=== PATIENT | female | born 1965 | race Caucasian/White ===

== ENCOUNTER 2019-08-13 01:02 | Day surgery (SDC) | payer BC, OTHER, SELFPAY ==
[2019-08-09 15:07] VITALS: BMI 24.7
[2019-08-13 10:36] VITALS: BP 105/61; PULSE 91; RESP 20; TEMP 36.2; O2SAT 100; BMI 24.7
[2019-08-13] MEDS: LACTATED RINGERS 1,000 ML 150 ML IV CONT (10:40)
--- NOTE | 2019-08-13 10:53 | PM.HPGS ---
History of Present Illness History of Present Illness Consent: Risks, benefits, and alternatives have been discussed and questions answered. Patient agrees to proceed with procedure. Chief complaint: Epigastric Pain/ Neoplasm Screening Narrative: Genevieve Temple is a 54 year old female Here for screening colonoscopy in for investigation of vomiting spells that characterized by dry heaves. For about 9 months she will notice while she was eating or while swallowing that she will develop severe contraction in her entire abdomen resulting in dry heaves. even though this occurs while eating, no food comes up. She had a gastric sleeve procedure 8 years ago. Her weight had dropped to 160 but slowly she regained about 50 lb. Now, for the past several months she is losing weight having lost about 20 lb with these episodes. She will get a burning in her chest after dry heaves, but again nothing comes up. There has been no change in bowel habits PMFSH Past Medical History Medical History HTN (hypertension), benign Hypercholesteremia Hypothyroidism Surgical History Surgical History Bariatric surgery status h/o gastric sleeve 2011 History of cholecystectomy History of cystoscopy from rib. History of tonsillectomy Hx of eye surgery rt muscle. Family History Family History Grandparent Family history of malignant neoplasm Family history of osteoporosis Family history of alcoholism Family history of Alzheimer's disease Diabetes mellitus Mother Family history of osteoporosis Patient's mother is in good health Sibling Family history of osteoporosis Patient's sister is in good health Family history of allergic disorder Family history of malignant melanoma Father Patient's father is in good health Malignant neoplasm of prostate Hypertension Family history of diabetes mellitus in first degree relative Family history of coronary artery disease Other Family history of attention deficit hyperactivity disorder (ADHD) Social History Social History Smoking packs per day: 1 Smoking cigarettes per day: 20.0 Years smoked: 7 Smoking pack-years: 7.00 Smoking status: Former smoker Tobacco type: cigarettes Second hand tobacco smoke exposure: No Smoking end date: 06/26/93 Alcohol intake: never Substance use: never Substance use type: does not use Gender identity (if verbalized by the patient): Female Meds Home Medications and Allergies Home Medications Medication Instructions Recorded Confirmed Type meloxicam 15 mg tablet 15 mg PO DAILY 05/10/19 08/13/19 History lisinopril 10 mg tablet 10 mg PO DAILY #90 tablet 06/03/19 08/13/19 Rx levothyroxine 112 mcg tablet 112 mcg PO DAILY #90 tablet 06/26/19 08/13/19 Rx lorazepam 0.5 mg tablet 0.5 mg PO TID PRN #30 tablet 07/15/19 08/13/19 Rx hydrochlorothiazide 25 mg tablet 25 mg PO DAILY #90 tablet 07/22/19 08/13/19 Rx rosuvastatin 10 mg tablet 10 mg PO DAILY #90 tablet 07/22/19 08/13/19 Rx cyanocobalamin (vitamin B-12) 500 500 mcg NASAL WEEKLY #12 each 08/02/19 08/13/19 Rx mcg/spray nasal spray Allergies Allergy/AdvReac Type Severity Reaction Status Date / Time Iodine and Iodide Containing Allergy Severe Difficulty Verified 08/13/19 10:42 Produc Breathing Vital Signs Vital Signs - 24 hr 08/13/19 10:36 Temperature 36.2 C L Pulse Rate 91 Respiratory Rate 20 Blood Pressure 105/61 Pulse Oximetry 100 Exam Const: General: alert Orientation/consciousness: patient oriented x3 Resp: Auscultation: clear to auscultation bilaterally Cardio: Rhythm: regular rhythm GI: GI Palp: Yes Soft to palpation and No Tenderness to palpation present (GI) Neuro: General: patient oriented x3 Assessment and Plan Asses
--- NOTE | 2019-08-13 11:25 | WPDANESEPPF ---
Anes - Initial Pre Proc Eval Procedure: Operation Date: 08/13/19 11:00 Proposed Procedures p Esophagogastroduodenoscopy & Screening Colonoscopy - [place] MD Date/Time: 08/13/19 11:25 Surgeon: [place] MD Pre Op Diagnosis: Epigastric Pain/ Neoplasm Screening Patient Data Age: 54 Gender: F Height: 5 ft 7 in Weight: 71.7 kg Last Vital Signs Temp 97.2 F L 08/13/19 10:36 Pulse 91 08/13/19 10:36 Resp 20 08/13/19 10:36 BP 105/61 08/13/19 10:36 Pulse Ox 100 08/13/19 10:36 Allergies Allergy/AdvReac Type Severity Reaction Status Date / Time Iodine and Iodide Containing Allergy Severe Difficulty Verified 08/13/19 10:42 Produc Breathing Home Medications Medication Instructions Recorded Confirmed Type meloxicam 15 mg tablet 15 mg PO DAILY 05/10/19 08/13/19 History lisinopril 10 mg tablet 10 mg PO DAILY #90 tablet 06/03/19 08/13/19 Rx levothyroxine 112 mcg tablet 112 mcg PO DAILY #90 tablet 06/26/19 08/13/19 Rx lorazepam 0.5 mg tablet 0.5 mg PO TID PRN #30 tablet 07/15/19 08/13/19 Rx hydrochlorothiazide 25 mg tablet 25 mg PO DAILY #90 tablet 07/22/19 08/13/19 Rx rosuvastatin 10 mg tablet 10 mg PO DAILY #90 tablet 07/22/19 08/13/19 Rx cyanocobalamin (vitamin B-12) 500 500 mcg NASAL WEEKLY #12 each 08/02/19 08/13/19 Rx mcg/spray nasal spray Patient hx anesthesia problems: none Family hx anesthesia problems: none PMFSH Past Medical History Medical History HTN (hypertension), benign Hypercholesteremia Hypothyroidism Surgical History Surgical History Bariatric surgery status h/o gastric sleeve 2011 History of cholecystectomy History of cystoscopy from rib. History of tonsillectomy Hx of eye surgery rt muscle. Family History Family History Grandparent Family history of malignant neoplasm Family history of osteoporosis Family history of alcoholism Family history of Alzheimer's disease Diabetes mellitus Mother Family history of osteoporosis Patient's mother is in good health Sibling Family history of osteoporosis Patient's sister is in good health Family history of allergic disorder Family history of malignant melanoma Father Patient's father is in good health Malignant neoplasm of prostate Hypertension Family history of diabetes mellitus in first degree relative Family history of coronary artery disease Other Family history of attention deficit hyperactivity disorder (ADHD) Social History Social History Smoking packs per day: 1 Smoking cigarettes per day: 20.0 Years smoked: 7 Smoking pack-years: 7.00 Smoking status: Former smoker Tobacco type: cigarettes Second hand tobacco smoke exposure: No Smoking end date: 06/26/93 Alcohol intake: never Substance use: never Substance use type: does not use Gender identity (if verbalized by the patient): Female Anes - Eval Final PreProcedure Day of Procedure 08/13/19 11:25 Patient weight: normal Heart: regular rate and rhythm Lungs: clear to auscultation Airway: Mallampati scale class II Neurological: alert and oriented Last oral intake: >/= 8 hours ASA classification: III Emergent: no Anesthetic plan: proceed Anesthesia type and monitoring: general GIVS and standard monitoring Informed Consent: The patient's anesthetic plan and its attendant risks and benefits were discussed with the patient/family/POA. Questions were solicited and answers provided to the satisfaction of the patient/family/POA.
[2019-08-13 11:57] VITALS: BP 89/58; PULSE 70; RESP 16; O2SAT 99
[2019-08-13 12:07] VITALS: BP 94/62; PULSE 56; RESP 16; O2SAT 100
[2019-08-13 12:17] VITALS: BP 99/79; PULSE 58; RESP 16; O2SAT 100
[2019-08-13 12:27] VITALS: BP 102/67; PULSE 60; RESP 16; O2SAT 100
== END 2019-08-13 12:59 | disposition home or self-care (01) ==
PROVIDERS: PCP Family Medicine; Visit Provider Internal Medicine Gastroenterology
PROC: 0DJ08ZZ Inspection of Upper Intestinal Tract, Via Natural or Artificial Opening Endoscopic (ICD-10-PCS; CPT 43235; principal; 2019-08-13 11:00)
DX: Z12.11 Encounter for screening for malignant neoplasm of colon (principal); K21.9 Gastro-esophageal reflux disease without esophagitis; K29.70 Gastritis, unspecified, without bleeding; Z98.84 Bariatric surgery status; I10 Essential (primary) hypertension; E78.00 Pure hypercholesterolemia, unspecified; E03.9 Hypothyroidism, unspecified; Z87.891 Personal history of nicotine dependence
CPT/HCPCS: 45378; 43239; 87081; 88305; J2704; J7120

== ENCOUNTER → 2019-08-20 16:19 | Outpatient (CLI) | payer BC, OTHER, SELFPAY ==
--- NOTE | ~2019-08-20 | MM_ITS ---
EXAMINATION: MM screening brenna BI w zina HISTORY: Screening mammogram TECHNIQUE: Craniocaudal and mediolateral oblique 3-D tomosynthesis images were obtained and synthetic 2-D images were generated. CAD analysis was submitted and interpreted. COMPARISON: No prior mammogram is available for comparison at this institution. BREAST PARENCHYMAL COMPOSITION: There are scattered areas of fibroglandular density. FINDINGS: There is no evidence of suspicious mass, calcification, or architectural distortion to sugg est malignancy in either breast. There has been no suspicious interval change. IMPRESSION: 1. No mammographic evidence of malignancy. 2. Recommend routine screening mammography in one year. BI-RADS Category 1: Negative Reviewed, dictated and finalized at location A. [employer]
== END ==
PROVIDERS: PCP Family Medicine; Visit Provider Family Medicine
DX: Z12.31 Encounter for screening mammogram for malignant neoplasm of breast (principal)
CPT/HCPCS: 77063; 77067

== ENCOUNTER 2019-08-30 07:35 | Outpatient (CLI) | payer BC, OTHER, SELFPAY ==
--- NOTE | ~2019-08-30 | XR_ITS ---
EXAMINATION: XR UGIAC w small bowel DATE: 08/30/2019 09:15 INDICATION: Enteritis. Dry heaves when eating. TECHNIQUE: The patient drank thick barium, gas-producing crystals, and thin barium. Fluoroscopy of th e esophagus, stomach, and small bowel was performed. Fluoroscopy exposure time was 1.0 minutes. Radio graphs of the abdomen were obtained. The total number of images was 292. COMPARISON: Chest CT 06/08/2012 FINDINGS: UPPER GASTROINTESTINAL SERIES: There is no mass or stricture of the esophagus. 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 Esophageal motil ity is normal. There is no hiatal hernia. There was no gastroesophageal reflux with provocative maneu vers. The stomach shows a normal folding pattern. Surgical clips in the right upper quadrant are like ly from cholecystectomy. SMALL BOWEL SERIES: The small bowel shows a normal folding pattern. Specifically, the terminal ileum is normal. Transit t kam to the colon was 15 minutes. IMPRESSION: 1. Epiphrenic diverticulum of the distal esophagus. 2. Normal small bowel series. Reviewed, dictated and finalized at location A. [employer]
== END 2019-08-30 07:36 | disposition home or self-care (01) ==
LOC: ANHIMG 07:46
PROVIDERS: PCP Family Medicine; Visit Provider Internal Medicine Gastroenterology
DX: K52.9 Noninfective gastroenteritis and colitis, unspecified (principal); K22.5 Diverticulum of esophagus, acquired
CPT/HCPCS: 74246; 74248

== ENCOUNTER 2020-10-27 13:09 | Emergency (ER) | payer BC, OTHER, SELFPAY ==
[2020-10-27 13:28] VITALS: BP 115/66; PULSE 88; RESP 16; TEMP 36.2; O2SAT 99
--- NOTE | 2020-10-27 14:09 | ED.SKABFB ---
HPI - Skin/Abscess/Foreign Bdy General Chief complaint: Skin/Abscess/Foreign Body <Sparkle Arnett MD - Last Filed: 10/27/20 21:28> Stated complaint: tick removal <Sparkle Arnett MD - Last Filed: 10/27/20 21:28> Time Seen by Provider: 10/27/20 13:14 <Sparkle Arnett MD - Last Filed: 10/27/20 21:28> Source: patient <Sparkle Arnett MD - Last Filed: 10/27/20 21:28> Mode of arrival: ambulatory <Sparkle Arnett MD - Last Filed: 10/27/20 21:28> Limitations: no limitations <Sparkle Arnett MD - Last Filed: 10/27/20 21:28> History of Present Illness HPI narrative: This is a 55 year old female who presents for evaluation of tick removal . She states 4 days ago she went to [place] for dog training, and they were in a tick infested area. She states she removed 60 ticks over the last 4 days. She was unable to remove 3 ticks from her pelvis. She has tried selsum blue and alcohol to kill them . She called her PCP yesterday and he prescribed her doxycycline. She took a dose yesterday and this morning. <Sparkle Arnett MD - Last Filed: 10/27/20 21:28> Related Data Allergies/Adverse reactions: Allergies Allergy/AdvReac Type Severity Reaction Status Date / Time Iodine and Iodide Containing Allergy Severe Difficulty Verified 10/27/20 13:37 Produc Breathing <Sparkle Arnett MD - Last Filed: 10/27/20 21:28> Review of Systems Review of Systems: Narrative: CONSTITUTIONAL: Denies fever, chills, or sweats. EYES: Denies visual changes, redness, or discharge. ENT: Denies rhinorrhea, congestion, sore throat, or otalgia. CARDIOVASCULAR: Denies chest pain, palpitations, or edema. RESPIRATORY: Denies cough or dyspnea. GASTROINTESTINAL: Denies abdominal pain, nausea, vomiting, or diarrhea. GENITOURINARY: Denies dysuria or hematuria. SKIN: Tick bites to pelvic area MUSCULOSKELETAL: Denies back pain, joint pain, or myalgia. NEUROLOGIC: Denies headache, numbness, dizziness, or weakness. PSYCHIATRIC: Denies anxiety or depression. <NEAL Lang - Last Filed: 10/27/20 14:54> [facility] Past Medical History Medical History: Medical History (Updated 10/27/20 @ 14:48 by NEAL Lang) Diabetes mellitus type 2, uncontrolled HTN (hypertension), benign Hypercholesteremia Hypothyroidism Long-term insulin use <Sparkle Arnett MD - Last Filed: 10/27/20 21:28> Surgical History Surgical History: Surgical History Bariatric surgery status h/o gastric sleeve 2012 History of cholecystectomy History of cystoscopy from rib. History of tonsillectomy Hx of eye surgery rt muscle. <Sparkle Arnett MD - Last Filed: 10/27/20 21:28> Family History Family History: Family History Grandparent Family history of malignant neoplasm Family history of osteoporosis Family history of alcoholism Family history of Alzheimer's disease Diabetes mellitus Mother Family history of osteoporosis Patient's mother is in good health Sibling Family history of osteoporosis Patient's sister is in good health Family history of allergic disorder Family history of malignant melanoma Father Patient's father is in good health Malignant neoplasm of prostate Hypertension Family history of diabetes mellitus in first degree relative Family history of coronary artery disease Other Family history of attention deficit hyperactivity disorder (ADHD) <Sparkle Arnett MD - Last Filed: 10/27/20 21:28> Social History Social History: Social History Smoking packs per day: 1 Smoking cigarettes per day: 20.0 Years smoked: 7 Smoking pack-years: 7.00 Smoking status: Former smoker Tobacco type: cigarettes Second hand tobacco smoke exposure: No Smoking end date: 06/26/93 Alcohol int
== END 2020-10-27 15:03 | disposition home or self-care (01) ==
PROVIDERS: Emergency Provider Nurse Practitioner; PCP Family Medicine
DX: S30.860A Insect bite (nonvenomous) of lower back and pelvis, initial encounter (principal); E11.9 Type 2 diabetes mellitus without complications; I10 Essential (primary) hypertension; E78.00 Pure hypercholesterolemia, unspecified; E03.9 Hypothyroidism, unspecified; Z79.4 Long term (current) use of insulin; Z98.84 Bariatric surgery status; W57.XXXA Bitten or stung by nonvenomous insect and other nonvenomous arthropods, initial encounter
CPT/HCPCS: 99281

== ENCOUNTER 2021-04-06 23:28 | Emergency (ER) | payer BC, OTHER, SELFPAY ==
--- NOTE | ~2021-04-06 | CT_ITS ---
EXAMINATION: CT abdomen pelvis wo con DATE: 04/07/2021 03:26 INDICATION: Lower abdominal pain and hematochezia TECHNIQUE: Computed tomography (CT) of the abdomen and pelvis was performed without intravenous contr ast. Automated exposure control and iterative reconstruction technique were employed. The dose-length product was 503.70 mGy-cm. COMPARISON: None FINDINGS: Lung bases are clear. Heart size is normal. No pericardial or pleural effusion. Postoperative change of prior cholecystectomy with surgical clips the gallbladder fossa and of sleeve gastrectomy with sut ure line along the greater curvature of the stomach. Liver, spleen, pancreas, bilateral adrenal gland s and kidneys are normal. No urolithiasis. Bowels including the appendix are normal. Bladder, uterus and bilateral adnexa are normal. No free intraperitoneal gas or fluid. No pathologically enlarged abd ominal or pelvic lymphadenopathy. Moderate to severe disc height loss at L5-S1. Mild lower thoracic s pondylosis with mild anterior wedging at T11. IMPRESSION: 1. No acute intra-abdominal/pelvic process. Reviewed, dictated and finalized at location A.
[2021-04-06 23:36] VITALS: BP 96/69; PULSE 113; RESP 18; TEMP 36.1; O2SAT 100
[2021-04-07 00:57] LABS: Basophils Absolute Auto 0.1 K/mm3 (0.0-0.1); Basophils Percent Auto 0.3 % (0.2-1.2); Eosinophils Percent Auto 0.1 % (0-4.4); Hemoglobin 15.9 g/dL (12.0-15.0); Immature Granulocyte Absolute 0.08 K/mm3 (0.00-0.031); Immature Granulocyte Percent A 0.5 % (0-0.5); Lymphocytes Percent Auto 6.3 % (18.3-44.2); Mean Corpuscular HGB Conc 33.8 g/dl (32-36); Mean Corpuscular Hemoglobin 30.6 pg (26-34); Mean Corpuscular Volume 90.6 fl (80-100); Mean Platelet Volume 9.9 fl (7.4-10.4); Monocytes Absolute Auto 0.7 K/mm3 (0.1-0.6); Monocytes Percent Auto 4.2 % (2.6-8.5); Neutrophils Absolute Auto 15.4 K/mm3 (1.3-6.7); Neutrophils Percent Auto 88.6 % (45.5-73.1); Platelet Count Result 292 k/mm3 (150-375); Red Blood Count 5.19 M/mm3 (4.2-5.4); Red Cell Distribution Width 11.9 % (11.5-14.5); White Blood Count 17.4 K/mm3 (4.5-10.0)
[2021-04-07 01:13] LABS: Alanine Aminotransferase 15 U/L (4-35); Albumin Level 4.8 g/dL (3.5-5.1); Alkaline Phosphatase 93 U/L (38-126); Anion Gap 9 mmol/L (8-16); Aspartate Amino Transferase 23 U/L (14-36); Bilirubin,Total 0.6 mg/dL (0.2-1.3); Blood Urea Nitrogen 34 mg/dL (7-17); Calcium 9.9 mg/dL (8.4-10.2); Carbon Dioxide 29 mmol/L (22-30); Chloride 97 mmol/L (98-107); Estimated CRCL calculation 52 ml/min; Estimated Glomerular Filt Rate 52; Glucose 155 mg/dL (65-110); Lipase 272 U/L (23-300); Sodium 135 mmol/L (137-145)
[2021-04-07 01:29] VITALS: BP 100/79; PULSE 100; RESP 18; TEMP 36.6; O2SAT 99
[2021-04-07] MEDS: MORPHINE SULFATE (*CRX) 2 MG/ML INJ IV PUSH (02:55)
--- NOTE | 2021-04-07 03:50 | ED.GENADULT ---
HPI - General Adult General Chief complaint: Abdominal Pain Stated complaint: constipation, rectal bleeding Time Seen by Provider: 04/07/21 01:57 History of Present Illness HPI narrative: Patient 56-year-old female presents the emergency department with chief complaint of fecal impaction. The patient states that she has been having difficulty trying to have a bowel movement reports she is tried multiple enemas noticed she had a little blood and irritation in her rectal area. Patient states she has had no improvement whenever she attempts to defecate reports that the abdomen is diffusely tender but reports that she has not had any vomiting. Related Data Allergies Allergy/AdvReac Type Severity Reaction Status Date / Time Iodine and Iodide Containing Allergy Severe Difficulty Verified 10/27/20 13:37 Produc Breathing Review of Systems Review of Systems: A 10 system review of systems was completed on the patient and is negative except for what is stated in the HPI. Nursing and ancillary documentation was reviewed. [facility] Past Medical History Medical History Diabetes mellitus type 2, uncontrolled HTN (hypertension), benign Hypercholesteremia Hypothyroidism Long-term insulin use Surgical History Surgical History Bariatric surgery status h/o gastric sleeve 2012 History of cholecystectomy History of cystoscopy from rib. History of tonsillectomy Hx of eye surgery rt muscle. Family History Family History Grandparent Family history of malignant neoplasm Family history of osteoporosis Family history of alcoholism Family history of Alzheimer's disease Diabetes mellitus Mother Family history of osteoporosis Patient's mother is in good health Sibling Family history of osteoporosis Patient's sister is in good health Family history of allergic disorder Family history of malignant melanoma Father Patient's father is in good health Malignant neoplasm of prostate Hypertension Family history of diabetes mellitus in first degree relative Family history of coronary artery disease Other Family history of attention deficit hyperactivity disorder (ADHD) Social History Social History Smoking packs per day: 1 Smoking cigarettes per day: 20.0 Years smoked: 7 Smoking pack-years: 7.00 Smoking status: Former smoker Tobacco type: cigarettes Second hand tobacco smoke exposure: No Smoking end date: 06/26/93 Alcohol intake: never Substance use: never Substance use type: does not use Gender identity (if verbalized by the patient): Female Sexual Orientation (if Verbalized by the Patient): Lesbian, [place], or Homosexual Exam Narrative: GENERAL: Well-appearing, well-nourished, and in no acute distress. HEAD: Normocephalic, atraumatic. EYES: PERRLA and EOMI. ENT: Nares clear, no rhinorrhea or epistaxis. Mucous membranes moist. NECK: Supple. CHEST: Clear to auscultation. No respiratory distress. HEART: Regular rate and rhythm. No murmur heard. Normal peripheral pulses. ABDOMEN: Soft, nontender, nondistended, normal active bowel sounds. : Rectal exam showed a large fecal burden in the rectal vault with impaction. Manual disimpaction was performed EXTREMITIES: Normal range of motion. No edema. SKIN: Warm, dry, no rash. NEURO: No focal deficits. Alert and oriented x3. PSYCH: Normal mood and affect. Course Course Emergency Course: After manual disimpaction affect fairly significant amount of stool was removed from the vault. A soapsuds enema was performed and the patient had a very large bowel movement and was feeling much better. Patient does have a elevated white blood cell count at 17,000 I did have some discomfort in her abdomen. A CT scan of
[2021-04-07 04:05] VITALS: BP 105/76; PULSE 77; RESP 18; O2SAT 99
[2021-04-07 06:20] VITALS: BP 133/71; PULSE 72; RESP 16; O2SAT 100
== END 2021-04-07 06:27 | disposition home or self-care (01) ==
PROVIDERS: Emergency Provider Emergency Medicine; PCP Family Medicine
DX: R10.84 Generalized abdominal pain (principal); K56.41 Fecal impaction; E11.9 Type 2 diabetes mellitus without complications; I10 Essential (primary) hypertension; E78.5 Hyperlipidemia, unspecified; E03.9 Hypothyroidism, unspecified; Z79.4 Long term (current) use of insulin
CPT/HCPCS: 36415; 74176; 80053; 83690; 85025; 96374; 99284; J2270

== ENCOUNTER 2021-08-09 16:17 | Outpatient (CLI) | payer BC, OTHER, SELFPAY ==
--- NOTE | ~2021-08-09 | XR_ITS ---
XR_[id number]_CR DATE: 08/09/2021 16:49 INDICATION: Fall. Generalized neck pain. TECHNIQUE: AP, lateral and open mouth views COMPARISON: None FINDINGS: There is straightening of the cervical spine. C1 and C2 are normally aligned and the odontoid process is intact. There is minimal anterolisthesis at C3-4 and mild anterolisthesis at C4-5, C5-6 and C7-T1. There is moderate degenerative disc at C6-7. No fracture or dislocation of the cervical spine or locked facet. No prevertebral soft tissue swelli ng. There is degenerative change at the left uncovertebral joint at C6-7. IMPRESSION: Straightening of the cervical spine Cervical spondylosis Reviewed, dictated and finalized at [facility]. Reviewed, dictated and finalized at location B. H SPECIALIST
--- NOTE | ~2021-08-09 | XR_ITS ---
EXAMINATION: XR thoracic spine 2V, XR lumbar spine 2-3V DATE: 08/09/2021 16:49 INDICATION: Back pain post fall TECHNIQUE: 1. AP and lateral views of the thoracic spine were obtained. 2. AP, lateral and coned-down lateral lumbosacral views of the lumbar spine were obtained. COMPARISON: CT abdomen and pelvis dated 04/07/2021 FINDINGS: 15 degrees levoscoliosis between T7 and T11. Approximately 10 degrees of more caudal thoracolumbar de xtrocurvature. Chronic minimal anterior wedging at T11 unchanged since the prior CT. There is a more recent L1 compression fracture with approximately 20% anterior vertebral body height loss which is ne w since 04/07/2021. Multilevel mild to moderate disc height loss with mild degenerative endplate culp ges throughout the thoracic spine. Moderate disc height loss at L5-S1 and mild disc height loss at a few of the more cephalad lumbar level. Cholecystectomy clips at the right upper quadrant. Suture line s in the upper abdomen including the left epigastric region suggesting prior gastric bypass procedure . Several phleboliths in the pelvis. Visualized lungs are clear. Cardiomediastinal silhouette is norm al. IMPRESSION: 1. Mild L1 compression fracture new since 04/07/2021, likely acute given the provided clinical histor y. 2. Mild thoracic levoscoliosis with mild to moderate thoracic and mild lumbar spondylosis. Reviewed, dictated and finalized at location A. STER IMPRESSION: 1. Mild L1 compression fracture new since 04/07/2021, likely acute given the pr ovided clinical history. 2. Mild thoracic levoscoliosis with mild to moderate thoracic and mild lumbar s pondylosis.
== END 2021-08-09 16:18 | disposition home or self-care (01) ==
PROVIDERS: PCP Family Medicine; Visit Provider Nurse Practitioner Family
DX: S32.010A Wedge compression fracture of first lumbar vertebra, initial encounter for closed fracture (principal); X58.XXXA Exposure to other specified factors, initial encounter
CPT/HCPCS: 72040; 72070; 72100

== ENCOUNTER 2022-04-26 15:59 | Outpatient (CLI) | payer BC, OTHER, SELFPAY ==
--- NOTE | ~2022-04-26 | MR_ITS ---
EXAMINATION: MR shoulder RT wo con DATE: 04/26/2022 16:45 INDICATION: Right shoulder pain TECHNIQUE: Magnetic resonance imaging (MRI) of the right shoulder was performed without intravenous c ontrast. Sequences included axial PD-weighted FS FSE, coronal oblique PD-weighted FS FSE, coronal obl ique T2-weighted FS FSE, sagittal PD-weighted FS FSE, and sagittal T1-weighted SE. COMPARISON: None. FINDINGS: Coracoacromial arch: The acromion undersurface is curved in morphology (type II). The coracoacromial ligament is normal. M ild to moderate acromioclavicular osteoarthritis. Rotator cuff: Mild supraspinatus and infraspinatus tendinopathy without tear. The subscapularis and teres minor ten dons are normal. Normal rotator cuff muscle bulk and signal. Biceps tendon, glenoid labrum and glenohumeral cartilage: Long head of the biceps tendon is normal. Suggestion of a [place] complex with absent anterosuperior g lenoid labrum and thickened cordlike middle glenohumeral ligament. There is a superior, anterior to p osterior tear of the glenoid labrum (SLAP tear) extending from the 1:00 position anteriorly to the 1 0:00 position posteriorly. Mild nonuniform partial-thickness cartilage loss with smooth chondral surf ben along the inferomedial aspect of the humeral head, apex of the humeral head and along the glenoid . Tiny marginal osteophytes along the anterior inferior and inferior glenoid. Fluid: Small amount of fluid along the long head biceps tendon sheath disproportionate to the physiologic am ount fluid in the glenohumeral joint space consistent with mild bicipital tenosynovitis. No loose ost eochondral bodies. No abnormal fluid signal in the subacromial/subdeltoid bursa to suggest bursitis. Bones: Normal marrow signal with no edema, fracture or abnormal marrow replacing process. IMPRESSION: 1. Mild glenohumeral osteoarthritis with SLAP tear at the superior to posterior superior glenoid labr um. Incidental likely [place] complex with suggestion of an absent anterosuperior labrum and thickened cordlike middle glenohumeral ligament. 2. Mild supraspinatus and infraspinatus tendinopathy without tear. 3. Mild bicipital tenosynovitis with normal long head biceps tendon. 4. Mild to moderate right acromioclavicular osteoarthritis. Reviewed, dictated and finalized at location B. IMPRESSION: 1. Mild glenohumeral osteoarthritis with SLAP tear at the superior to posterior superior glenoid labrum. Incidental likely [place] complex with suggestion of a n absent anterosuperior labrum and thickened cordlike middle glenohumeral ligam ent. 2. Mild supraspinatus and infraspinatus tendinopathy without tear. 3. Mild bicipital tenosynovitis with normal long head biceps tendon. 4. Mild to moderate right acromioclavicular osteoarthritis.
== END 2022-04-26 16:00 | disposition home or self-care (01) ==
PROVIDERS: PCP Family Medicine; Visit Provider Specialist
DX: M75.21 Bicipital tendinitis, right shoulder (principal); M19.011 Primary osteoarthritis, right shoulder
CPT/HCPCS: 73221